=== PATIENT | female | born 1970 | race Caucasian/White ===

== ENCOUNTER 2017-05-31 19:17 | Emergency (ER) | payer MEDICAID ==
[~2017-05-31] VITALS: Ht 172.7 cm; Wt 86.2 kg
[2017-05-31 20:19] VITALS: Ht 172.7 cm; Wt 86.2 kg
[2017-06-01 01:04] VITALS: BP 115/64
== END 2017-05-31 22:22 | disposition home or self-care (01) ==
LOC: ED 19:17
DX: S93.401A Sprain of unspecified ligament of right ankle, initial encounter (principal); I10 Essential (primary) hypertension; E11.9 Type 2 diabetes mellitus without complications; E78.00 Pure hypercholesterolemia, unspecified; X50.1XXA Overexertion from prolonged static or awkward postures, initial encounter; Y93.89 Activity, other specified; Y92.89 Other specified places as the place of occurrence of the external cause; Y99.8 Other external cause status

== ENCOUNTER 2017-06-02 13:29 | Emergency (ER) | payer MEDICAID | END 2017-06-02 13:43 | disposition left against medical advice (07) | LOC: ED 13:29 | DX: Z53.21 Procedure and treatment not carried out due to patient leaving prior to being seen by health care provider (principal) ==

== ENCOUNTER 2018-01-03 20:33 | Emergency (ER) | payer MEDICAID ==
[~2018-01-03] VITALS: Ht 167.6 cm; Wt 88.0 kg
[2018-01-03 20:46] VITALS: Ht 167.6 cm; Wt 88.0 kg
[2018-01-03 23:09] VITALS: BP 127/74
== END 2018-01-03 23:09 | disposition home or self-care (01) ==
LOC: ED 20:33
DX: M13.871 Other specified arthritis, right ankle and foot (principal); I10 Essential (primary) hypertension; E11.9 Type 2 diabetes mellitus without complications; E78.00 Pure hypercholesterolemia, unspecified
CPT/HCPCS: 82962; Q0092

== ENCOUNTER 2019-04-04 20:20 | Emergency (ER) | payer MEDICAID ==
[~2019-04-04] VITALS: Ht 167.6 cm; Wt 84.8 kg
[2019-04-04 23:34] VITALS: BP 130/68
== END 2019-04-04 23:34 | disposition home or self-care (01) ==
LOC: ED 20:20
DX: R51 Headache (principal); I10 Essential (primary) hypertension; E11.9 Type 2 diabetes mellitus without complications; E78.00 Pure hypercholesterolemia, unspecified
CPT/HCPCS: 82962